=== PATIENT | female | born 1975 | race American Indian/Alaskan Native ===

== ENCOUNTER 2018-03-20 13:20 | Emergency (ER) | payer SELFPAY ==
[2018-03-20 13:30] VITALS: PULSE 85; BMI 24.0
[2018-03-20] MEDS ORDERED: Sodium Chloride 0.9% 500 ML IV ONE ×2 (14:06→14:33)
[2018-03-20 14:08] LABS: HCG,QUALITATIVE URINE NEGATIVE (NEGATIVE)
[2018-03-20 14:14] LABS: URINE BILIRUBIN NEGATIVE (NEGATIVE); URINE CLARITY Clear (Clear); URINE COLOR YELLOW (YELLOW); URINE GLUCOSE (UA) NEGATIVE (Normal)
[2018-03-20 14:15] LABS: URINE BLOOD NEGATIVE (NEGATIVE); URINE LEUKOCYTE ESTERASE NEGATIVE Leu/uL (Negative); URINE PROTEIN NEGATIVE (NEGATIVE); URINE UROBILINOGEN 0.2 mg/dL (0.2-1.0)
[2018-03-20 14:16] LABS: SQUAMOUS EPITHIAL 1 /hpf (0-5)
[2018-03-20 14:23] LABS: BASO % 1.2 % (0.0-2.0); EOS # 0.1 K/uL (0.0-0.7); EOS % 1.8 % (0.0-4.0); HEMOGLOBIN 13.8 g/dL (11.0-16.0); LYMPH # 2.3 K/uL (1.0-4.3); LYMPH % 52.2 % (20.0-40.0); MEAN CELL VOLUME 95.4 fL (81.0-99.0); MEAN CORPUSCULAR HEMOGLOBIN 32.5 pg (27.0-31.0); MEAN CORPUSCULAR HGB CONC 34.1 g/dL (33.0-37.0); MONO # 0.3 K/uL (0.0-0.8); MONO % 7.9 % (0.0-10.0); NEUT # 1.6 K/uL (1.8-7.0); NEUT % 36.9 % (50.0-75.0); NRBC % 0.1 % (0.0-2.0); RBC 4.25 Mil/uL (3.80-5.20); RED CELL DISTRIBUTION WIDTH 12.7 % (11.5-14.5); WHITE BLOOD COUNT 4.3 K/uL (4.8-10.8)
--- NOTE | 2018-03-20 14:35 | C.PDOC ---
History Of Present Illness 42 year old female with PMHx of HIV and bipolar disorder presents to the ED requesting medication refill. Patient recently moved to the area from [place] but has not established regular primary care. She has run out HIV and bipolar medications. Additionally patient reports having intermittent vomiting and diarrhea for the last 2 months, which worsened today. Patient was also visited by a social media intern today, who told her she needed a medical evaluation. Vomiting occurs mostly in the morning, is not every day, and is non-bloody. Otherwise patient is able to tolerate food normally. Reports she has 2 episodes of watery non-bloody diarrhea per day, last episode was this morning. Otherwise she denies any fever, chills, weight loss, abdominal pain, or urinary complaints. Patient also denies having suicidal ideation, homicidal ideation, or auditory/visual hallucinations. PMD- None Time Seen by Provider: 03/20/18 13:50 Chief Complaint (Nursing): GI Problem History Per: Patient History/Exam Limitations: no limitations Onset/Duration Of Symptoms: Intermittent Episodes Current Symptoms Are (Timing): Still Present Suicide/Self Injury Attempted (Context): None Associated Symptoms: denies: Suicidal Thoughts, Suicidal Plan Involuntary Hold By: None Past Medical History Reviewed: Historical Data, Nursing Documentation, Vital Signs Vital Signs: Last Vital Signs Temp 97.1 F L 03/20/18 13:27 Pulse 85 03/20/18 13:27 Resp 16 03/20/18 13:27 BP 140/96 H 03/20/18 13:27 Pulse Ox 100 03/20/18 13:27 - Medical History PMH: Bipolar Disorder, HIV Surgical History: No Surg Hx Family History: States: No Known Family Hx - Social History Hx Tobacco Use: Yes Hx Alcohol Use: Yes (occasional) Hx Substance Use: No - Immunization History Hx Tetanus Toxoid Vaccination: No Hx Influenza Vaccination: No Hx Pneumococcal Vaccination: No Review Of Systems Except As Marked, All Systems Reviewed And Found Negative. Constitutional: Negative for: Fever, Chills Gastrointestinal: Positive for: Vomiting, Diarrhea. Negative for: Abdominal Pain, Hematochezia, Hematemesis Genitourinary: Negative for: Dysuria, Frequency Neurological: Negative for: Weakness, Dizziness Psych: Negative for: Psychosis, Suicidal ideation (or homicidal ideation) Physical Exam - Physical Exam Appears: Non-toxic, No Acute Distress Skin: Warm, Dry Head: Normacephalic, Tenderness Eye(s): bilateral: PERRL, EOMI Oral Mucosa: Moist Throat: Normal Neck: Normal ROM, Trachea Midline Lymphatic: No Adenopathy Chest: Symmetrical Cardiovascular: Rhythm Regular, No Murmur Respiratory: Normal Breath Sounds, No Accessory Muscle Use, No Wheezing Gastrointestinal/Abdominal: Soft, No Tenderness, No Mass, No Guarding, No Rebound Back: Normal Inspection, No Paraspinal Tenderness Extremity: Normal ROM, No Deformity Neurological/Psych: Oriented x3, Normal Motor, Normal Sensation, Other (Normal affect, No sensorimotor deficits) ED Course And Treatment - Laboratory Results Result Diagrams: 03/20/18 14:19 03/20/18 14:19 Lab Results: Urine Color Yellow (YELLOW) 03/20/18 14:01 Urine Clarity Clear (Clear) 03/20/18 14:01 Urine pH 6.0 (5.0-8.0) 03/20/18 14:01 Ur Specific [place] 1.005 (1.003-1.030) 03/20/18 14:01 Urine Protein Negative mg/dL (NEGATIVE) 03/20/18 14:01 Urine Glucose (UA) Negative mg/dL (Normal) 03/20/18 14:01 Urine Ketones Negative mg/dL (NEGATIVE) 03/20/18 14:01 Urine Blood Negative (NEGATIVE) 03/20/18 14:01 Urine Nitrate Negative (NEGATIVE) 03/20/18 14:01 Urine Bilirubin Negative (NEGATIVE) 03/20/18 14:01 Urine Urobilinogen 0.2 mg/dL (0.2-1.0) 03/20/18 14:01 Ur Leukocyte Esterase Negative Ilia/uL (Negative) 03/20/18 14:01 Ur Squamous Epith Cells 1 /hpf (0-5) 03/20/18 14:01 Urine HCG, Qual Negative (NEGATIVE) 03/20/18 14:01 Urine HCG, Qual Negative (NEGATIVE) 03/20/18 14:01 O2 Sat by Pulse Oximetry: 100 (RA) Pulse Ox Interpretation: Normal Medical Decision Making Medical Decision Making: Impression: Intermittent vomiting and diarrhea with benign exam Differential diagnosis includes but is not limited to: dyspepsia, gastroenteritis, dehydration, UTI, gastritis Plan: - CMP - Urine drug screen - Lipase - CBC - Urinalysis - Urine preg - 20 mg IV Pepcid - 4 mg IV Zofran - NS IV fluids infusing - Reassess Labs unremarkable Pt stable for discharge with clinic followup Disposition Counseled Patient/Family Regarding: Studies Performed, Diagnosis - Disposition Referrals: [facility] [Outside] (CALL TO MAKE AN APPOINTMENT BY THE END OF THE WEEK) Disposition: HOME/ ROUTINE Disposition Time: 14:44 Condition: STABLE Additional Instructions: PLEASE FOLLOWUP AT CLINIC FOR FURTHER MEDICAL AND PSYCHIATRIC CARE. Prescriptions: Omeprazole Magnesium [Prilosec Otc] 20 mg PO DAILY #30 tcp Ondansetron ODT [Zofran ODT] 1 odt PO Q6 PRN #20 odt PRN Reason: Nausea/Vomiting Saccharomyces Boulardi [Florastor] 500 mg PO BID #28 cap Instructions: Nausea and Vomiting, Adult (DC) Forms: Work Excuse - Clinical Impression Clinical Impression: Vomiting and diarrhea - Scribe Statement The provider has reviewed the documentation as recorded by the Karen Fraser Provider Attestation: All medical record entries made by the Manuelibnirav were at my direction and personally dictated by me. I have reviewed the chart and agree that the record accurately reflects my personal performance of the history, physical exam, medical decision making, and the department course for this patient. I have also personally directed, reviewed, and agree with the discharge instructions and disposition.
[2018-03-20 14:38] LABS: ALB/GLOB RATIO 1.5 (1.0-2.1); ALBUMIN 4.5 g/dL (3.5-5.0); ALT/SGPT 25 U/L (9-52); AST/SGOT 29 U/L (14-36); BLOOD UREA NITROGEN 9 mg/dL (7-17); CALCIUM 9.1 mg/dl (8.6-10.4); GFR NON-AFRICAN AMERICAN > 60; LIPASE 66 U/L (23-300)
[2018-03-20 14:53] LABS: BARBITURATES, UR NEGATIVE (NEGATIVE); BENZODIAZEPINES, UR NEGATIVE (NEGATIVE); OPIATES, UR NEGATIVE (NEGATIVE); PHENCYCLIDINE, UR NEGATIVE (NEGATIVE)
[2018-03-20 15:43] VITALS: BP 142/76; RESP 18; TEMP 97.8
[2018-03-20 16:18] VITALS: O2SAT 100
== END 2018-03-20 15:42 | disposition home or self-care (01) ==
LOC: C.ER 13:20
DX: R11.10 Vomiting, unspecified (principal); R19.7 Diarrhea, unspecified
CPT/HCPCS: 80053; 81001; 83690; 84703; 85025; 96361; 96374; 96375; 99283; G0480; J2405; J7040